=== PATIENT | female | born 1995 | race Caucasian/White ===

== ENCOUNTER 2023-06-02 03:41 | Emergency (ER) | payer MEDICAID ==
[~2023-06-02] VITALS: Ht 165.1 cm; Wt 68.0 kg
[2023-06-02 03:45] VITALS: BP 141/96; PULSE 87; RESP 18; TEMP 98; O2SAT 98
[2023-06-02] MEDS ORDERED: HYDR-459 MT (04:01)
== END 2023-06-02 04:13 | disposition home or self-care (01) ==
LOC: ER 03:41
DX: F43.0 Acute stress reaction (principal); F41.9 Anxiety disorder, unspecified
CPT/HCPCS: 81025; 99283

== ENCOUNTER 2023-12-15 19:45 | Emergency (ER) | payer MEDICAID ==
[~2023-12-15] VITALS: Ht 157.5 cm; Wt 58.0 kg
[~2023-12-15 19:45] MED LIST: HYDR-459 MT
[2023-12-15 20:11] VITALS: O2SAT 98
[2023-12-15] MEDS: ACETAMINOPHEN 325MG TABLET PO STA (22:04)
[2023-12-15] MEDS ORDERED: AZIT250T12 MT (23:36)
[2023-12-16 00:01] VITALS: BP 145/76; PULSE 98; RESP 18; TEMP 36.83628; O2SAT 98
== END 2023-12-16 00:03 | disposition home or self-care (01) ==
LOC: ER 19:45
DX: J18.9 Pneumonia, unspecified organism (principal)
CPT/HCPCS: 71045; 99283